=== PATIENT | female | born 1975 | race Caucasian/White ===

== ENCOUNTER → 2018-02-04 | Outpatient (CLI) | payer OTHER ==
[2018-02-04 08:55] LABS: LDL CHOLESTEROL 80 mg/dl
== END ==
LOC: LAB 08:07
PROVIDERS: ATTEND Obstetrics & Gynecology
DX: Z01.419 Encounter for gynecological examination (general) (routine) without abnormal findings (principal)
CPT/HCPCS: 36415; 82040; 82247; 82310; 82374; 82435; 82465; 82565; 82947; 83718; 84075; 84132; 84155; 84295; 84443; 84450; 84460; 84478; 84520; 85027

== ENCOUNTER → 2018-02-05 | Outpatient (CLI) | payer OTHER ==
--- NOTE | 2018-02-05 16:41 | RADIOLOGY IMAGING REPORT ---
FACILITY: [facility] PATIENT NAME: JOSHUA RAY : [id number] MR: [id number] V: [id number] EXAM DATE: [id number] ORDERING PHYSICIAN: VENTURA NICE TECHNOLOGIST: Cyndi Brown PROCEDURE:BILATERAL DIGITAL SCREENING MAMMOGRAM WITH CAD ASSISTED INTERPRETATION & 3D TOMOSYNTHESIS COMPARISON:None. This is the patient's baseline mammogram. INDICATIONS:Screening FINDINGS: Moderately heterogeneous fibroglandular tissue is seen throughout the breasts. There is no demonstration of malignant appearing mass, malignant appearing calcifications or other secondary sign of malignancy in either breast. DIAGNOSTIC CATEGORY 1--NEGATIVE. RECOMMENDATIONS: ROUTINE MAMMOGRAM AND CLINICAL EVALUATION. IMPRESSION: BIRADS 1: Negative. No significant abnormality is seen. Dictated by: Albina Jasso M.D. on 02/05/2018 at 11:10 Transcribed by: PATRIC on 02/05/2018 at 11:19 Approved by: Albina Jasso M.D. on 02/05/2018 at 16:40 [facility]
== END ==
LOC: MAMO 06:52
PROVIDERS: ATTEND Obstetrics & Gynecology
DX: Z12.31 Encounter for screening mammogram for malignant neoplasm of breast (principal)
CPT/HCPCS: 77063; 77067

== ENCOUNTER → 2019-02-13 | Outpatient (CLI) | payer OTHER ==
[~2019-02-13] MED LIST: CALC1TAB32 PO; FOLI200T11
--- NOTE | 2019-02-16 16:05 | RADIOLOGY IMAGING REPORT ---
FACILITY: [facility] [place] PATIENT NAME: JOSHUA RAY : [id number] MR: [id number] V: [id number] EXAM DATE: [id number] ORDERING PHYSICIAN: VENTURA NICE TECHNOLOGIST: Cyndi Brown PROCEDURE: BILATERAL DIGITAL SCREENING MAMMOGRAM WITH CAD ASSISTED INTERPRETATION & 3D TOMOSYNTHESIS. REASON FOR STUDY: Screening. FAMILY HISTORY OF BREAST CANCER: None. BREAST PROCEDURES/TREATMENTS: None. COMPARISON: 02/05/18. VIEWS OBTAINED: Bilateral 2D & 3D full field CC & MLO projections. BREAST DENSITY: The breasts are heterogeneously dense which can obscure small masses. MAMMOGRAM FINDINGS: The parenchymal pattern has remained stable allowing for difference in mammographic technique & patient positioning. IMPRESSION: BIRADS 1: Negative. DIAGNOSTIC CATEGORY 1--NEGATIVE. RECOMMENDATIONS: ROUTINE MAMMOGRAM AND CLINICAL EVALUATION. Dictated by: Albina Jasso M.D. on 02/13/2019 at 15:28 Transcribed by: PATRIC on 02/13/2019 at 15:45 Approved by: Albina Jasso M.D. on 02/16/2019 at 16:02 [facility]
== END ==
LOC: MAMO 00:37
PROVIDERS: ATTEND Obstetrics & Gynecology
DX: Z12.31 Encounter for screening mammogram for malignant neoplasm of breast (principal)
CPT/HCPCS: 77063; 77067